=== PATIENT | male | born 1955 | race Caucasian/White ===

== ENCOUNTER 2020-02-28 11:11 | Emergency (ER) | payer BC, OTHER ==
[2020-02-28 11:31] VITALS: BP 168/98; PULSE 82; TEMP 98.7; BMI 22.4
== END 2020-02-28 13:41 | disposition home or self-care (01) ==
LOC: JER 11:11
DX: U07.1 COVID-19 (principal); R05 Cough
CPT/HCPCS: 71046-TC-FY; 87426; 99284-25

== ENCOUNTER 2020-02-28 15:26 | Emergency (ER) | payer BC, OTHER ==
[2020-02-28 15:36] VITALS: BMI 22.4
[2020-02-28] MEDS ORDERED: BAMLANIVIMAB 700 MG in SODIUM CHLORIDE 180 ML IVPB ONE (15:41)
[2020-02-28 16:44] LABS: MCH 30.8 pg (25.7-33.7); MCHC 33.3 g/dl (32.0-35.9); MEAN CELL VOLUME 92.5 fl (80-96); MEAN PLT VOLUME 8.3 fl (7.5-11.1); PLATELET COUNT 152 K/MM3 (134-434); RBC 4.22 M/mm3 (4.00-5.60); RDW 12.7 % (11.9-15.9); WHITE BLOOD COUNT 4.1 K/mm3 (4.0-10.0)
[2020-02-28 17:03] LABS: POTASSIUM 3.5 mmol/L (3.5-5.1)
[2020-02-28 17:04] LABS: CALCIUM 9.1 mg/dL (8.5-10.1)
[2020-02-28 17:05] LABS: BLOOD UREA NITROGEN 14.2 mg/dL (7-18)
[2020-02-28 20:10] VITALS: BP 161/93; PULSE 86; TEMP 98.6
[2020-02-28] MEDS ORDERED: ONDANSETRON 4 MG/2 ML VIAL IM ONE (21:30)
[2020-02-28] MEDS ORDERED: ONDANSETRON 4 MG/2 ML VIAL ONE (21:36)
== END 2020-02-28 22:28 | disposition home or self-care (01) ==
LOC: JER 15:26
PROC: 3E03329 Introduction of Other Anti-infective into Peripheral Vein, Percutaneous Approach (ICD-10-PCS; principal; 2020-02-28)
PROC: 3E0233Z Introduction of Anti-inflammatory into Muscle, Percutaneous Approach (ICD-10-PCS; 2020-02-28)
DX: U07.1 COVID-19 (principal)
CPT/HCPCS: 36415; 80048; 85027; 99284-25; M0239; Q0239